=== PATIENT | male | born 1990 | race Hispanic/Latino ===

== ENCOUNTER 2023-02-07 02:15 | Emergency (ER) | payer BC ==
[~2023-02-07] VITALS: Ht 182.9 cm; Wt 157.4 kg
[2023-02-07 02:18] VITALS: BP 139/83
[2023-02-07] MEDS ORDERED: DOCU-116 PO (05:22)
== END 2023-02-07 05:51 | disposition home or self-care (01) ==
LOC: EDH 02:15
DX: E86.0 Dehydration (principal); K59.00 Constipation, unspecified
CPT/HCPCS: 96372; 99282